=== PATIENT | male | born 1945 | race African-American/Black ===

== ENCOUNTER 2018-03-31 07:27 | Outpatient (CLI) | payer MEDICARE, OTHER ==
[~2018-03-31] VITALS: Ht 160.1 cm; Wt 81.6 kg
[~2018-03-31 07:27] MED LIST: 00186-0372-20 IH; ADVAIR IH; ALBUTEROL0.09 MG/A1 IH; ASPI325T6 PO; ATACAND 16M16 MG/TAB PO; CIALIS10 MG PO; CIPRO 500MG TA500 MG PO; CLARITIN 1010 MG/TAB PO; ECOTRIN325 MG PO; FLAGYL500 MG PO; FLONASE NASAL S16 GM NS; GLUCOPHAGE XR500 M1 PO; HYTRIN10 M1 PO; LASIX 40MG TABL40 MG PO; LORATADINE10 MG PO; METFORMIN HCL500 M1 PO; MICRO-K 1010 MEQ PO; NORVASC 10MG10 MG PO; PLENDIL10 MG PO; POTASSIUM CHLO10 ME2 PO; PROAIR HFA0.09 MG/AC IH; PROVIGIL200 MG PO; RT ADVAIR 128 DISKUS IH; RT SPIRIVA18 MCG IH; SEROQUEL 2525 MG/TAB PO; SINGULAIR 110 MG/TAB PO; SINGULAIR10 MG PO; ULORIC80 MG PO; VENTOLIN0.09 MG IH; ZOCOR 40MG40 MG PO; ZOCOR80 MG PO; felodipine PO; terazosin PO
[2018-03-31 08:39] VITALS: BP 129/73; PULSE 79; TEMP 98
[2018-03-31 08:41] VITALS: BP 129/73; PULSE 79; TEMP 98
[2018-03-31] MEDS ORDERED: CEPHALEXIN500 M1 PO (09:56)
== END 2018-03-31 10:47 | disposition home or self-care (01) ==
LOC: COL.CAR 07:27
DX: I48.0 Paroxysmal atrial fibrillation (principal); I13.0 Hypertensive heart and chronic kidney disease with heart failure and stage 1 through stage 4 chronic kidney disease, or unspecified chronic kidney disease; E11.22 Type 2 diabetes mellitus with diabetic chronic kidney disease; N18.3 Chronic kidney disease, stage 3 (moderate); I50.9 Heart failure, unspecified; J44.9 Chronic obstructive pulmonary disease, unspecified; E23.0 Hypopituitarism; D50.9 Iron deficiency anemia, unspecified; M19.90 Unspecified osteoarthritis, unspecified site; G47.30 Sleep apnea, unspecified; Q85.00 Neurofibromatosis, unspecified; I83.019 Varicose veins of right lower extremity with ulcer of unspecified site; I83.029 Varicose veins of left lower extremity with ulcer of unspecified site; I49.3 Ventricular premature depolarization; I27.20 Pulmonary hypertension, unspecified; I47.1 Supraventricular tachycardia; Z88.2 Allergy status to sulfonamides; Z88.8 Allergy status to other drugs, medicaments and biological substances; Z87.891 Personal history of nicotine dependence

== ENCOUNTER 2018-10-12 14:58 | Emergency (ER) | payer MEDICARE, OTHER ==
[~2018-10-12] VITALS: Ht 162.6 cm; Wt 93.2 kg
[~2018-10-12 14:58] MED LIST changes: +CEPHALEXIN500 M1 PO
[2018-10-12 15:14] VITALS: TEMP 99.8
[2018-10-12 15:31] LABS: BASO % 0.2 % (0.0-2.0); EOS # 0.1 (0.0-0.7); EOS % 0.7 % (0-4.0); GRAN # 11.2 (1.4-6.5); GRAN % 73.6 % (42.2-75.2); HEMOGLOBIN 14.7 g/dl (13.5-18.0); LYMPH # 0.7 (1.2-3.4); LYMPH % 4.4 % (20.0-51.0); MEAN CELL VOLUME 88 fl (80.0-100.0); MEAN CORPUSCULAR HEMOGLOBIN 28 pg (27.0-31.0); MEAN CORPUSCULAR HGB CONC 31 g/dl (33.0-37.0); MEAN PLATELET VOLUME 10.8 fl (7.4-10.4); MONO # 2.9 (0.1-0.6); MONO % 19.1 % (1.7-9.3); PLATELET COUNT 292 K/mm3 (130-400); RED BLOOD COUNT 5.34 M/mm3 (4.20-5.60)
[2018-10-12 15:34] LABS: INR 1.2 (0.8-3.0); PROTHROMBIN TIME 13.6 SECONDS (9.7-12.8)
[2018-10-12 15:41] LABS: ALANINE AMINOTRANSFERASE 27 U/L (21-72); ALBUMIN 3.4 gm/dL (3.5-5.0); ALKALINE PHOSPHATASE 88 U/L (50-136); ANION GAP 5 mmol/L (7-16); AST,SGOT 20 U/L (15-37); BILIRUBIN,TOTAL 0.9 mg/dL (0.0-1.0); BLOOD UREA NITROGEN 56 mg/dL (9-20); CALCIUM 8.6 mg/dL (8.4-10.2); CARBON DIOXIDE 34 mmol/L (22-30); CHLORIDE 101 mmol/L (98-107); CREATININE, serum 2.56 mg/dL (0.66-1.25); GLUCOSE 108 mg/dL (74-106); SODIUM 140 mmol/L (137-145); TOTAL PROTEIN 7.5 gm/dL (6.4-8.2)
[2018-10-12 15:53] LABS: TROPONIN-I < 0.012 ng/mL (0.000-0.035)
[2018-10-12 16:03] LABS: ARTERIAL BLD GAS O2 SATURATION 96.2 % (92-100); ARTERIAL BLD GAS TCO2 CT 34.2; ARTERIAL BLOOD GAS BASE EXCESS 6.6 (-2-2); ARTERIAL BLOOD GAS HCO3 32.6 meq/L (22-26); ARTERIAL BLOOD GAS PCO2 51.3 mmHg (35-45); ARTERIAL BLOOD GAS PO2 87.6 mmHg (80-100); ARTERIAL BLOOD GAS pH 7.42 (7.35-7.45)
[2018-10-12 18:08] VITALS: BP 126/76; PULSE 108
== END 2018-10-12 18:13 | disposition short-term general hospital (02) ==
LOC: COL.ER 14:58
PROVIDERS: Emergency Medicine
DX: J18.1 Lobar pneumonia, unspecified organism (principal); J44.9 Chronic obstructive pulmonary disease, unspecified; E78.5 Hyperlipidemia, unspecified; I10 Essential (primary) hypertension; E11.9 Type 2 diabetes mellitus without complications; Z86.73 Personal history of transient ischemic attack (TIA), and cerebral infarction without residual deficits; N17.9 Acute kidney failure, unspecified; Z79.51 Long term (current) use of inhaled steroids
CPT/HCPCS: J0295; J7030

== ENCOUNTER 2019-06-29 08:15 | Day surgery (SDC) | payer MEDICARE, OTHER ==
[~2019-06-29] VITALS: Ht 162.6 cm; Wt 86.4 kg
[2019-06-29 09:08] VITALS: BP 116/82; PULSE 100; TEMP 97
[2019-06-29] MEDS ORDERED: RT ADVAIR 128 DISKUS IH (09:38)
[2019-06-29] MEDS ORDERED: LIPITOR 10MG10 MG PO (09:39)
[2019-06-29] MEDS ORDERED: CARDIZEM 60MG T60 MG PO (09:40)
[2019-06-29] MEDS ORDERED: DULCOLAX STOOL100 MG PO (09:41)
[2019-06-29] MEDS ORDERED: EXELON9.5 MG/24 TD (09:43)
[2019-06-29] MEDS ORDERED: FERROUS SU325 MG/TAB PO (09:43)
[2019-06-29] MEDS ORDERED: ATROVENT I0.2 MG/1 M IH (09:46)
[2019-06-29] MEDS ORDERED: MIRALAX PA17 GM/Dose PO (09:47)
[2019-06-29] MEDS ORDERED: ANTI-DIARRHEAL2 MG PO (09:47)
[2019-06-29] MEDS ORDERED: MULTAQ400 MG PO (09:48)
[2019-06-29] MEDS ORDERED: MYRBETR50MG PO (09:49)
[2019-06-29] MEDS ORDERED: RT SPIRIVA18 MCG IH (09:50)
[2019-06-29] MEDS ORDERED: FLOMAX 0.40.4 MG/CAP PO (09:50)
[2019-06-29] MEDS ORDERED: THEO-24 20200 MG/CAP PO (09:51)
[2019-06-29] MEDS ORDERED: ULORIC40 MG PO (09:52)
[2019-06-29] MEDS ORDERED: PRILOSEC 20MG20 MG PO (09:56)
[2019-06-29 11:35] VITALS: BP 106/89; PULSE 43; TEMP 97.6
--- NOTE | 2019-06-29 11:58 | NUR ---
PT TOLERATED IN-ROOM CYSTOSCOPY WELL. DENIES PAIN OR NAUSEA. HRR. DISCHARGE INSTRUCTIONS GIVEN. AT SIDE. PT VOICES UNDERSTANDING. PT CHANGED CLOTHING AND TRANSFERED X2 ASSIST. [employer] BUS CAME TO PICK PATIENT UP. CALLED JALEN ESTEBAN, NURSE TO GIVE REPORT.
== END 2019-06-29 12:06 | disposition home or self-care (01) ==
LOC: SDCO 08:15
DX: N40.1 Benign prostatic hyperplasia with lower urinary tract symptoms (principal); N32.89 Other specified disorders of bladder; N31.0 Uninhibited neuropathic bladder, not elsewhere classified; Q85.00 Neurofibromatosis, unspecified; R35.0 Frequency of micturition; R35.1 Nocturia; D64.9 Anemia, unspecified; I12.9 Hypertensive chronic kidney disease with stage 1 through stage 4 chronic kidney disease, or unspecified chronic kidney disease; I87.2 Venous insufficiency (chronic) (peripheral); E11.22 Type 2 diabetes mellitus with diabetic chronic kidney disease; N18.9 Chronic kidney disease, unspecified; J44.9 Chronic obstructive pulmonary disease, unspecified; E66.9 Obesity, unspecified; G47.30 Sleep apnea, unspecified; Z79.84 Long term (current) use of oral hypoglycemic drugs; Z96.651 Presence of right artificial knee joint; Z87.891 Personal history of nicotine dependence